=== PATIENT | female | born 1965 | race Two or more races ===

== ENCOUNTER 2019-06-26 17:21 | Inpatient (IN) | payer OTHER ==
[~2019-06-26] VITALS: Ht 154.9 cm; Wt 89.8 kg
[~2019-06-26 17:21] MED LIST: ASPIR-TRIN325 MG; CATAFLAM50 MG PO; HUMALOG100 U/ML; LANTUS100 U/ML; LOPRESSOR25 MG; NEURONTIN600 MG; SYNTHROID50 MCG; VASOTEC10 MG
[2019-06-26] MEDS ORDERED: ADULT ASPIRIN81 MG (17:34)
[2019-06-26] MEDS ORDERED: RANEXA1000 MG (17:34)
--- NOTE | 2019-06-26 17:34 | NUR ---
SE RECIBE PACIENTE ALERTA Y ORIENTADA REFIERE TENER DOLOR DE PECHO OPRESIVO Y ARDOR QUE SE IRRADIA EN BRAZO ABDIEL. PACIENTE REFIERE TENER NAUSEAS Y FALTA DE AIRE,SE REALIZA EKG Y SE PRESENTA A DR. BARBA.
--- NOTE | 2019-06-26 18:03 | NUR ---
PACIENTE ALERTA Y ORIENTADA X3. SE UBICA EN ARNEL #16 EN UNIDAD DE DOLOR DE PECHO. SE CONECTA A MONITOR CARDIACO Y OXIMETRIA DE PULSO. SE ORIENTA SOBRE TX Y PROCEDIMIENTO A REALIZAR Y REFIERE ENTENDER. SE REALIZA MUESTRAS DE LABORATORIO BAJO MEDIDAS ASEPTICAS. CANALIZACION PATENTE Y JACOB DE EDEMA Y ERITEMA. SE ADMINISTRA MEDICAMENTOS MANOHAR ORDEN MEDICA. SE MANTIENE BAJO OBSERVACION POR CAMBIOS SIGNIFICATIVOS.
--- NOTE | 2019-06-26 20:11 | NUR ---
PACIENTE ALERTA Y ORIENTADA X 3. SE ORIENTA SOBRE TX A RECIBIR Y REFIERE ENTENDER. SE ADMINISTRA MEDICAMENTOS MANOHAR ORDEN MEDICA. SE ADMINISTRO LA PRIMERA NITROGLICERINA SUBLINGUAL A LAS 2010PM Y DEBIDO A QUE CONTINUABA CON EL DOLOR SE ADMINISTRO LA SEGUNDA A LAS 2017PM MANOHAR ORDEN MEDICA. LUEGO DE LA SEGUNDA NITROGLICERINA LA PACIENTE REFIRIO SENTIRSE MEJOR. SE MANTIENE BAJO OBSERVACION POR CAMBIOS SIGNIFICATIVOS.
== END 2019-06-30 12:53 | disposition designated cancer center or children's hospital (05) | DRG 305 ==
LOC: ER 17:21 → SURG 22:21
PROVIDERS: ADMIT Internal Medicine
PROC: 4A12X4Z Monitoring of Cardiac Electrical Activity, External Approach (ICD-10-PCS; principal; 2019-06-27)
PROC: B246ZZZ Ultrasonography of Right and Left Heart (ICD-10-PCS; 2019-06-27)
PROC: 4A02XM4 Measurement of Cardiac Total Activity, External Approach (ICD-10-PCS; 2019-06-28)
PROC: 3E073KZ Introduction of Other Diagnostic Substance into Coronary Artery, Percutaneous Approach (ICD-10-PCS; 2019-06-28)
DX: I11.9 Hypertensive heart disease without heart failure (principal); I25.110 Atherosclerotic heart disease of native coronary artery with unstable angina pectoris; E78.49 Other hyperlipidemia; Z95.1 Presence of aortocoronary bypass graft; E11.65 Type 2 diabetes mellitus with hyperglycemia

== ENCOUNTER 2019-11-14 15:52 | Outpatient (CLI) | payer OTHER ==
[~2019-11-14 15:52] MED LIST changes: +ADULT ASPIRIN81 MG; +RANEXA1000 MG
== END 2019-11-14 15:56 | disposition home or self-care (01) ==
LOC: RAD 15:52
DX: I25.10 Atherosclerotic heart disease of native coronary artery without angina pectoris (principal)

== ENCOUNTER 2021-03-26 18:19 | Emergency (ER) | payer OTHER ==
[~2021-03-26] VITALS: Ht 154.9 cm; Wt 90.7 kg
[2021-03-26] MEDS ORDERED: LOSARTAN POTASS25 MG (18:39)
[2021-03-26] MEDS ORDERED: PLAVIX75 MG (18:39)
[2021-03-26] MEDS ORDERED: CARVEDILOL25 MG (18:39)
[2021-03-26] MEDS ORDERED: ISOSORBIDE MONO60 MG (18:40)
[2021-03-26] MEDS ORDERED: XIGDUO XR 5 MG1 EAC1 (18:40)
[2021-03-26] MEDS ORDERED: MIDODRINE HCL5 MG (18:41)
[2021-03-26] MEDS ORDERED: CLONAZEPAM1 MG (18:41)
[2021-03-26] MEDS ORDERED: LIPITOR40 MG (18:42)
[2021-03-26] MEDS ORDERED: ZETIA10 MG (18:42)
[2021-03-26] MEDS ORDERED: ZOLOFT50 MG (18:42)
[2021-03-26] MEDS ORDERED: PRILOSEC OTC20 MG (18:43)
[2021-03-26] MEDS ORDERED: TENTRAL (18:43)
[2021-03-26] MEDS ORDERED: PEPCID AC10 MG (18:44)
== END 2021-03-27 05:07 | disposition home or self-care (01) ==
LOC: ER 18:19 → CPU-OBS 19:04 → ER 03-27 05:07
DX: R07.89 Other chest pain (principal); R06.02 Shortness of breath; R00.2 Palpitations